=== PATIENT | female | born 2005 | race Hispanic/Latino ===

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

== ENCOUNTER 2023-12-29 01:06 | Observation (INO) | payer SELFPAY ==
[2023-12-29] VITALS (9 sets, daily range): BP systolic 90–119; BP diastolic 38–74
[~2023-12-29] VITALS: Ht 157.5 cm; Wt 102.0 kg
[~2023-12-29 01:06] MED LIST changes: +KEFLEX500 MG PO; +METFORMIN HCL500 M1 PO; +TAM75CAP PO; +ZOFRAN4 MG/TAB PO
[2023-12-29] MEDS ORDERED: MORPHINE SULFATE 4 MG/ML VIAL IV ONE (01:25)
[2023-12-29] MEDS ORDERED: ONDANSETRON HCl 4 MG/2 ML SDV IV ONE (01:25)
--- NOTE | 2023-12-29 01:25 | NUR ---
PATIENT AMB TO RM 9 WITH STEADY GAIT AT THIS TIME, PATIENT TO BR FOR URINE SPECIMEN, CHANGED INTO GOWN, TRIAGE COMPLETE, AWAITING MD BROWN AT THIS TIME, NAD NOTED, VSS.
[2023-12-29 01:52] LABS: URINE BILIRUBIN - DIPSTICK Negative (NEGATIVE); URINE BLOOD DIPSTICK Negative (NEGATIVE); URINE COLOR Yellow; URINE GLUCOSE - DIPSTICK 500 mg/dL (NEGATIVE); URINE KETONE Negative (NEGATIVE); URINE LEUK ESTERASE Negative (NEGATIVE); URINE NITRITE - DIPSTICK Negative (Negative); URINE PH 5.5 (4.5-8.0); URINE PROTEIN - DIPSTICK Negative (NEG-TRACE)
[2023-12-29 01:53] LABS: BASO% 0.3 % (0-3); HEMATOCRIT 41.7 % (37.0-47.0); HEMOGLOBIN 14.1 g/dl (12.0-16.0); IMMATURE GRANULOCYTES 0.5 % (0.0-5.0); MEAN CELL VOLUME 85.8 fL CALC (80.0-100.0); MEAN CORPUSCULAR HGB CONC 33.8 g/dL CAL (32.0-36.0); NEUT# 3.88 thou/uL (2.00-7.15); NEUT% 51.2 % (42-76); RED BLOOD COUNT 4.86 mill/uL (4.20-5.60)
[2023-12-29 02:03] LABS: ALBUMIN 4.4 g/dL (3.2-5.0); ALKALINE PHOSPHATASE 58 u/l (38-126); ANION GAP 18 (6-22 (CALC)); BILIRUBIN, TOTAL 0.4 mg/dL (0.02-1.3); BUN 15 mg/dL (7-17); BUN/CREATININE RATIO 23 (12-20 (CALC)); CARBON DIOXIDE 22 mmol/l (22-30); CHLORIDE 99 mmol/l (95-108); CREATININE 0.6 mg/dL (0.5-1.0); GFR FOR AFR.AMER. > 60 ML/MIN (>=60 (CALC)); GFR OTHER RACES > 60 ML/MIN (>=60 (CALC)); LIPASE 86 u/l (23-300); POTASSIUM 4.7 mmol/l (3.5-5.1); SGOT/AST 59 u/l (14-36); SODIUM 134 mmol/l (137-146); TOTAL PROTEIN 7.2 g/dL (6.3-8.2)
[2023-12-29] MEDS ORDERED: SODIUM CHLORIDE 0.9% 1,000 ML IV ONE ×2 (02:10→04:00)
[2023-12-29] MEDS ORDERED: INSULIN REGULAR (HUMAN) 100 UNIT/ML INJ IV ONE (02:25)
--- NOTE | 2023-12-29 02:30 | NUR ---
PATIENT MEDICATED PER ORDERS AT THIS TIME, PATIENT UPDATED ON CONTINUOUS PLAN OF CARE AT THIS TIME, AWAITING ALL FURTHER ORDERS/RESULTS. PATIENT VOICES APPRECIATION OF CARE.
--- NOTE | 2023-12-29 03:25 | NUR ---
PATIENT GLUCOSE RECHECKED NOW AT 390, PATIENT UPDATED ON CONTINUOUS PLAN OF CARE AT THIS TIME, PATIENT VOICES UNDERSTANDING, IVF RUNNING AT THIS. PATIENT FAMILY AT BEDSIDE FOR COMFORT. WILL CONTINUE TO MONITOR.
[2023-12-29] MEDS ORDERED: MAGNESIUM HYDROXIDE 30 ML UDC PO PRN (04:05)
[2023-12-29] MEDS ORDERED: ACETAMINOPHEN 325 MG/TAB PO PRN (04:05)
[2023-12-29] MEDS ORDERED: SODIUM CHLORIDE 0.9% 1,000 ML IV PRN (04:05)
--- NOTE | 2023-12-29 04:10 | NUR ---
MD QUESTIONED ON LACTIC ACID ORDER FOR REPEAT, PROVIDED, REDRAWN AT THIS TIME, GLUCOSE REASSESSED NOW AT 371, PATIENT UPDATED ON CONTINUOUS PLAN OF CARE WITH NO FURTHER QUESTIONS OR CONCERNS AT THIS TIME, FAMILY AT BEDSIDE, AWAITING ALL FURTHER ORDERS/RESULTS AT THIS TIME.
--- NOTE | 2023-12-29 05:10 | NUR ---
PATIENT UPDATED ON CONTINUOUS PLAN OF CARE WITH NO FURTHER QUESTIONS OR CONCERNS AT THIS TIME, PATIENT VERBALIZES SHE IS COMFORTABLE, VOICES NO FURTHER QUESTIONS OR CONCERNS AT THIS TIME, [facility], WILL CONTINUE TO MONITOR.
[2023-12-29] MEDS ORDERED: CLARIFY DOSE SC PRN (05:50)
--- NOTE | 2023-12-29 06:25 | NUR ---
PATIENT GLUCOSE RECHEKED NOW AT 328, PATIENT RESTING, EASILY AROUSABLE AT THIS TIME, VSS, PATIENT UPDATED ON CONTINUOUS PLAN OF CARE AT THIS TIME, VOICES UNDERSTANDING WITH NO FURTHER QUESTIONS OR CONCERNS AT THIS TIME, FAMILY AT BEDSIDE. CALL LIGHT IN REACH, WILL CONTINUE TO MONITOR.
--- NOTE | 2023-12-29 07:00 | NUR ---
REPORT RECIEVED FROM LADARIUS ROSADO RESTING IN BED
--- NOTE | 2023-12-29 08:00 | NUR ---
BREAKFAST TRAY GIVEN TO PT, PT AMBULATED TO RESTROOM WITH STEADY GAIT.
[2023-12-29 08:10] LABS: ANION GAP 12 (6-22 (CALC)); BUN 12 mg/dL (7-17); BUN/CREATININE RATIO 32 (12-20 (CALC)); CARBON DIOXIDE 21 mmol/l (22-30); CHLORIDE 106 mmol/l (95-108); CREATININE 0.4 mg/dL (0.5-1.0); GFR FOR AFR.AMER. > 60 ML/MIN (>=60 (CALC)); GFR OTHER RACES > 60 ML/MIN (>=60 (CALC)); POTASSIUM 4.1 mmol/l (3.5-5.1); SODIUM 135 mmol/l (137-146)
[2023-12-29] MEDS ORDERED: DEXTROSE 250 ML IV PRN (09:00)
--- NOTE | 2023-12-29 09:01 | NUR ---
REINFORCING IRON AND REBAR WORKERS AT BEDSIDE. PT PROVIDED EDUCATION.
[2023-12-29] MEDS ORDERED: metFORMIN HYDROCHLORIDE 500 MG/TAB PO SCH (10:00)
--- NOTE | 2023-12-29 10:50 | NUR ---
PT AMBULATED TO THE BATHROOM WITH A STEADY GAIT
[2023-12-29] MEDS ORDERED: INSULIN LISPRO 100 UNITS/ML ML SC SCH (11:00)
--- NOTE | 2023-12-29 11:23 | NUR ---
ACCU CHECK PERFORMED 371. PT GIVEN 5 UNITS OF INSULIN.
[2023-12-29] MEDS ORDERED: LANTUS SOL100 UNIT/M SC (12:43)
--- NOTE | 2023-12-29 13:57 | NUR ---
PT DISCHRAGED HOME BY . PT GIVEN INSTEUCTION TO FOLLOW UP WITH PCP IN 1 WEEK AND CINTINUE NEDS PRESCRIBED. PT HAS NO QUESTIONS AT THIS TIME. PT AMBULATED OUT OF ER WITH A STEADY GAIT.
[2023-12-29] MEDS ORDERED: ENOXAPARIN SODIUM 40 MG/0.4 ML SYR SC SCH ×2 (21:00)
== END 2023-12-29 13:50 | disposition home or self-care (01) | DRG 638 ==
LOC: ED 01:06 → ED-I 03:58
PROVIDERS: Family Medicine; Student in an Organized Health Care Education/Training Program; ADMIT Internal Medicine; ATTEND Internal Medicine
DX: E11.65 Type 2 diabetes mellitus with hyperglycemia (principal); E87.20 Acidosis, unspecified; E86.0 Dehydration; E86.1 Hypovolemia; J45.909 Unspecified asthma, uncomplicated; F81.9 Developmental disorder of scholastic skills, unspecified; Z79.84 Long term (current) use of oral hypoglycemic drugs; Z20.822 Contact with and (suspected) exposure to COVID-19

== ENCOUNTER 2025-01-13 02:01 | Observation (INO) | payer SELFPAY ==
[2025-01-13] VITALS (14 sets, daily range): BP systolic 89–142; BP diastolic 52–88
[~2025-01-13] VITALS: Ht 157.5 cm; Wt 90.0 kg
[~2025-01-13 02:01] MED LIST changes: +LANTUS SOL100 UNIT/M SC; +VOLTAREN - GENE75 MG PO
--- NOTE | 2025-01-13 02:15 | NUR ---
PT TO RM #9 VIA W/C NOTIFIED.
[2025-01-13] MEDS ORDERED: SODIUM CHLORIDE 0.9% 1,000 ML IV STA (02:30)
[2025-01-13] MEDS ORDERED: ONDANSETRON HCl 4 MG/2 ML SDV IV STA (02:30)
[2025-01-13] MEDS ORDERED: ACETAMINOPHEN 325 MG/TAB PO ONE (02:45)
[2025-01-13 03:02] LABS: BASO% 0.1 % (0-3); EOS% 0.1 % (0-8); HEMATOCRIT 44.5 % (37.0-47.0); HEMOGLOBIN 15.4 g/dl (12.0-16.0); IMMATURE GRANULOCYTES 0.2 % (0.0-5.0); LYMPH% 11.7 % (15-41); MEAN CELL VOLUME 84.8 fL CALC (80.0-100.0); MEAN CORPUSCULAR HGB 29.3 pG CALC (26.0-32.0); MEAN CORPUSCULAR HGB CONC 34.6 g/dL CAL (32.0-36.0); MONO% 4.9 % (2-13); NEUT# 12.77 thou/uL (2.00-7.15); RED BLOOD COUNT 5.25 mill/uL (4.20-5.60); RED CELL DISTRI WIDTH 11.6 % (11.5-15.5)
[2025-01-13 03:09] LABS: HCG SERUM/URINE (NEG/POS) NEGATIVE (NEGATIVE)
[2025-01-13 03:12] LABS: ALBUMIN 4.9 g/dL (3.2-5.0); CREATININE 0.5 mg/dL (0.5-1.0); POTASSIUM 3.7 mmol/l (3.5-5.1); TOTAL PROTEIN 8.2 g/dL (6.3-8.2)
[2025-01-13] MEDS ORDERED: cefTRIAXone SODIUM 2 GM in SODIUM CHLORIDE 0.9% 100 ML IV ONE (03:30)
[2025-01-13] MEDS ORDERED: AZITHROMYCIN 500 MG in SODIUM CHLORIDE 0.9% 250 ML IV ONE (03:30)
[2025-01-13] MEDS ORDERED: INSULIN REGULAR (HUMAN) 100 UNIT/ML INJ IV ONE (03:35)
--- NOTE | 2025-01-13 03:35 | NUR ---
Pt received medicine. see MAR pt tolerated meds. pt stable. good rise and fall of chest.
[2025-01-13 03:54] LABS: URINE BILIRUBIN - DIPSTICK Negative (NEGATIVE); URINE BLOOD DIPSTICK Negative (NEGATIVE); URINE GLUCOSE - DIPSTICK >=1000 mg/dL (NEGATIVE); URINE KETONE Negative (NEGATIVE); URINE LEUK ESTERASE Negative (NEGATIVE); URINE NITRITE - DIPSTICK Negative (Negative); URINE PH 5.5 (4.5-8.0); URINE PROTEIN - DIPSTICK Negative (NEG-TRACE); URINE UROBILINOGEN - DIPSTICK 0.2 E.U./dL (0.2)
[2025-01-13 03:55] LABS: URINE COLOR Yellow
[2025-01-13] MEDS ORDERED: SODIUM CHLORIDE 0.9% 1,000 ML IV ONE (04:25)
--- NOTE | 2025-01-13 04:35 | NUR ---
Pt received meds see JAN. urine sample collected before beginning antibiotics. No complaints of respiratory distress. Good rise and fall of chest. Skin color normal for ethnicity. Pt warm to the touch. No complaints of pain. Vitals WNL
--- NOTE | 2025-01-13 05:25 | NUR ---
Pt receiving second ordered antibiotic see JAN. IV site checked for patency prior to beginning of infusion. No complaints of pain or respiratory distress. PT stable vitals WNL. able to tolerate fluids. verbal order given from MD to allow patient fluids as tolerated and diabetic diet. PT updated on care of plan by MD and nurse. no questions or concerns at this time.
--- NOTE | 2025-01-13 06:18 | NUR ---
Pt resting. Pt stable vitals WNL.
--- NOTE | 2025-01-13 06:57 | NUR ---
beside report given to AM nurse . patient stable, vitals WNL
--- NOTE | 2025-01-13 07:13 | NUR ---
spoke with MS2 nurse Jensen. updated on condition of patient, treatment in ED. no questions or concerns. AM ER nurse updated that report has been called
--- NOTE | 2025-01-13 07:20 | NUR ---
RECEIVED REPORT FROM RICCO LEON.
--- NOTE | 2025-01-13 07:30 | NUR ---
RECEIVED PT FROM ER VIA W/C. PT ASSISTED TO BED AND ORIENTED TO ROOM CALL LIGHT AND PHONE. GIRL FRIEND WILL AT BEDSIDE. WILL MONITOR.
[2025-01-13] MEDS ORDERED: SODIUM CHLORIDE 0.9% 1,000 ML IV PRN (07:45)
[2025-01-13] MEDS ORDERED: ACETAMINOPHEN 325 MG/TAB PO PRN (07:45)
[2025-01-13] MEDS ORDERED: ONDANSETRON HCl 4 MG/2 ML SDV IV PRN (07:45)
[2025-01-13] MEDS ORDERED: DEXTROSE 250 ML IV PRN (07:45)
--- NOTE | 2025-01-13 08:30 | NUR ---
ASSESSMENT COMPLETED AND INTERVIEW DONE WITH BOTH PATIENT AND HER SHIPPING LEAD PERSON WILL WHO IS THE PT GIRLFRIEND. WILL HAD THE PT PASSCODE BUT WAS NOT LISTED ON PT RECORD. PT VERBALIZED APPROVAL TO SPEAK WITH HER. WILL INDICATED THAT PT MOTHER WANTS TO BE INFORMED OF ALL CARE, BUT THAT SHE WAS AT HOME. SPOKE TO DR. ABBOTT AND CHRISTI RE: PT HAVING A LEARNING DISABILITY AND ALSO THAT THE PATIENT HAS BEEN HAVING DIARRHEA AT HOME AND HAD BEEN EXPOSED TO A FAMILY THAT WAS HAVING INFECTION WITH POSSIBLE SHINGELLA PER WILL AT BEDSIDE. CHRISTI AND DR ABBOTT AWARE AND STOOL SAMPLE NEEDED AND INSTRUCTED PT AND CG.
--- NOTE | 2025-01-13 08:45 | NUR ---
DR. ABBOTT AND CHRISTI AT BEDSIDE WITH PT
[2025-01-13] MEDS ORDERED: INSULIN GLARGINE 100 UNITS/ML SC SCH (09:00)
--- NOTE | 2025-01-13 10:00 | NUR ---
MOTHER AT BEDSIDE AND VOICED MULTIPLE COMPLAINTS AFTER GOING TO HRHaris VENEGAS MOTHER ON UNIT AT BEDSIDE.
[2025-01-13] MEDS ORDERED: ALBUTEROL108 MCG/AC IN (10:22)
[2025-01-13] MEDS ORDERED: ALBUTEROL SULFATE 8 GM INH IN PRN (10:45)
--- NOTE | 2025-01-13 10:45 | NUR ---
MOTHER AND S.O. AT BEDSIDE AND PT RESTING IN BED QUIETLY. EXPLAINED ANTIBIOTICS THAT WILL BE STARTED AND PURPOSES FOR WELL SIDE EFFECTS OF CIPRO AND FLAGYL. THEY VERBALIZED UNDERSTANDING. STOOL SAMPLE SENT TO LAB.
[2025-01-13] MEDS ORDERED: INSULIN LISPRO 100 UNITS/ML ML SC SCH (11:00)
--- NOTE | 2025-01-13 19:30 | NUR ---
SHIFT SUMMARY: PT RESTED ON AND OFF IN BED WITH S.O. AT BEDSIDE. PT INDICATED FEELING BETTER AFTER ANTIBIOTICS GIVEN WELL IVF. CALL LIGHT MAINTAINED IN REACH ALL SHIFT STOOL CULTURE GIVEN TO LAB AND AWAITING RESULTS. IVF CONTINUE FOR HYDRATION. PT AFEBRILE FOR END OF SHIFT AND BEDSIDE REPORT GIVEN TO ANNY CHACKO.
--- NOTE | 2025-01-13 20:00 | NUR ---
PT RESTING IN BED NO DISTRESS NOTED ON ASSESSMENT. VS WNL ON RA LUNDS CLEAR SKIN INTACT. PT STATED HAVING A HEADACHE NURSE PROVIDED PAIN MEDICATION. IV FLUSHED WORKING PROPERLY WITH IV FLUIDS ONGOING. FAMILY/FRIEND AT BEDSIDE. CALL LIGHT WITHIN REACH. PLAN OF CARE ONGOING.
--- NOTE | 2025-01-13 20:06 | NUR ---
glucose 332
--- NOTE | 2025-01-14 00:22 | NUR ---
PT SLEEPING EASILY AROUSABLE NO DISTRESS NOTED. CALL LIGHT WITHIN REACH. PLAN OF CARE ONGOING.
[2025-01-14 04:04] VITALS: BP 97/59
--- NOTE | 2025-01-14 04:15 | NUR ---
PT AWAKE NO DISTRESS NOTED ON EXAM. CALL LIGHT WITHIN REACH. PLAN OF CARE ONGOING.
[2025-01-14 04:44] VITALS: BP 97/59
[2025-01-14 05:26] LABS: BASO% 0.3 % (0-3); EOS% 2.3 % (0-8); IMMATURE GRANULOCYTES 0.3 % (0.0-5.0); LYMPH% 25.7 % (15-41); MEAN CELL VOLUME 87.8 fL CALC (80.0-100.0); MEAN CORPUSCULAR HGB 30.2 pG CALC (26.0-32.0); MEAN CORPUSCULAR HGB CONC 34.3 g/dL CAL (32.0-36.0); MONO% 7.8 % (2-13); NEUT# 4.66 thou/uL (2.00-7.15); NEUT% 63.6 % (42-76); RED BLOOD COUNT 4.11 mill/uL (4.20-5.60); RED CELL DISTRI WIDTH 11.8 % (11.5-15.5)
[2025-01-14 05:28] LABS: HEMATOCRIT 36.1 % (37.0-47.0); HEMOGLOBIN 12.4 g/dl (12.0-16.0)
[2025-01-14] MEDS ORDERED: AZITHROMYCIN 500 MG in SODIUM CHLORIDE 0.9% 250 ML IV SCH (05:30)
[2025-01-14 05:43] LABS: ALBUMIN 3.1 g/dL (3.2-5.0); BILIRUBIN, TOTAL 0.5 mg/dL (0.02-1.3); CREATININE 0.5 mg/dL (0.5-1.0); MAGNESIUM 1.8 mg/dL (1.6-2.3); TOTAL PROTEIN 5.6 g/dL (6.3-8.2)
[2025-01-14 06:57] VITALS: BP 105/61
--- NOTE | 2025-01-14 07:11 | NUR ---
01/14/2025 @0606 PT GLUCOSE IS 243.
--- NOTE | 2025-01-14 07:15 | NUR ---
PT LAYING IN BED ON HER CELL PHONE, PT IS A&O X3, PUPILS PERRL , RESP. EVEN AND UNLABORED, LUNG SOUNDS ARE CLEAR, ABD DISTENDED AND SOFT WITH ACTIVE BOWEL SOUNDS, NORMAL S1 S2 HEART SOUNDS, 20G RAC IV WITH FLUIDS INFUSING AT PRESCRIBED RATE, STRONG RADIAL AND PEDAL PULSES, SAFETY MESURES REINFORED, CALL SUGGS WITHIN REACH
[2025-01-14] MEDS ORDERED: INSULIN GLARGINE 100 UNITS/ML SC SCH (09:00)
--- NOTE | 2025-01-14 12:00 | NUR ---
PT SITTING UP IN THE BED EATING LUNCH, PT TOLERATING WELL, PT DENIES ANY NEEDS AT THIS TIME, VISITOR AT BEDSIDE, CALL SUGGS WITHIN REACH
[2025-01-14 14:56] VITALS: BP 92/45
--- NOTE | 2025-01-14 16:00 | NUR ---
PT SITTING UP IN BED PLAYING ON HER PHONE, PT DENIES ANY NEEDS AT THIS TIME, CALL SUGGS WITHIN REACH
--- NOTE | 2025-01-14 19:11 | NUR ---
RECEIVED REPORT FROM NURSE BAUTISTA, PATIENT ON CONTACT ISOLATION, SHIGELLA IN STOOL IV INFUSING WELL NS @ 100CC/HT, NOT IN DISTRESS, FAMILY IN ROOM CALL LIGHT WITHIN REACHED.
[2025-01-14 19:19] VITALS: BP 116/82
--- NOTE | 2025-01-15 00:58 | NUR ---
MANUAL BP TAKEN 100/58, PATIENT NOT IN DISTRESS,BREATGHING UNLABORED CALL LIGHT WITHIN REACHED.
--- NOTE | 2025-01-15 01:52 | NUR ---
zora requested to changed iv site r/t itching on iv site and pain, removed iv cath intact, no signs of inflammation noted on iv site, new iv inserted 22 on rfa patent flushes well, resumed ns at 125cc/hr.
[2025-01-15 04:00] VITALS: BP 91/61
--- NOTE | 2025-01-15 04:08 | NUR ---
PATIENT RESTING IN BED, EYES CLOSED. ONGOING IV FLAGYL, NO DISCOMFORTS NOTED AT THIS TIME, CALL LIGHT WITHIN REACHED.
--- NOTE | 2025-01-15 07:00 | NUR ---
SHIFT CHANGE REPORT, PT AWAKE ALERT AND ORIENTED SITTING UP IN BED, DENIES PAIN AT THIS TIME BUT STATES SHE HAS CRAMPING PAIN DURING DEFECATION, IVF INFUSING, CALL SUGGS IN REACH AND BED LOCKED IN LOWEST POSITION.
--- NOTE | 2025-01-15 07:00 | NUR ---
SHFIT CHANGE REPPORT, PT SLEEPING IN LEFT SIDE-LYING POSITION, NO SIGN DISCOMFORT, O2 @ 2L VIA NC IN PLACE, PUREWICK CATHETER IN PLACE WITH CLEAR MAT URINE, CALL SUGGS IN REACH AND BED LOCKED IN LOWEST POSITION.
[2025-01-15 07:17] LABS: BASO% 0.6 % (0-3); EOS% 2.6 % (0-8); HEMATOCRIT 38.2 % (37.0-47.0); HEMOGLOBIN 12.9 g/dl (12.0-16.0); IMMATURE GRANULOCYTES 0.9 % (0.0-5.0); LYMPH% 45.1 % (15-41); MEAN CORPUSCULAR HGB 29.7 pG CALC (26.0-32.0); MEAN CORPUSCULAR HGB CONC 33.8 g/dL CAL (32.0-36.0); NEUT# 2.29 thou/uL (2.00-7.15); NEUT% 42.8 % (42-76); RED BLOOD COUNT 4.34 mill/uL (4.20-5.60); RED CELL DISTRI WIDTH 11.7 % (11.5-15.5)
[2025-01-15 07:31] LABS: ALBUMIN 3.4 g/dL (3.2-5.0); BILIRUBIN, TOTAL 0.3 mg/dL (0.02-1.3); CREATININE 0.5 mg/dL (0.5-1.0); MAGNESIUM 1.8 mg/dL (1.6-2.3); POTASSIUM 4.2 mmol/l (3.5-5.1); TOTAL PROTEIN 5.9 g/dL (6.3-8.2)
--- NOTE | 2025-01-15 08:30 | NUR ---
AWAKE AND ALERT, C/O BACK PAIN @ 10, CONCERN ADDRESSED, IVF INFUSING.
[2025-01-15] MEDS ORDERED: INSULIN GLARGINE 100 UNITS/ML SC SCH (10:00)
--- NOTE | 2025-01-15 12:00 | NUR ---
PT REPORTED SHE HAS HAD 7 LOOSE BM'S SINCE THIS AM STARTING AT ABOUT 0400.
--- NOTE | 2025-01-15 12:32 | NUR ---
DAUGHTER BUZZ CALLED TO INQUIRE ABOUT CONDITION AND PLANS, INFORMED OF PHYSICAL THERAPIST'S RECOMMENDATION FOR REHAB, ASKED ABOUT SURGICAL PROCEDURE AND ORTHOPEDIC CONSULT, WILL BE VISITING LATER TO DISCUSS PLANS WITH CM.
--- NOTE | 2025-01-15 12:55 | NUR ---
C/O ITCHING IT IV INSERTION SITE DURING ANTIBIOTIC INFUSING, MED INFUSIONDECREASED AND COOL COMPRESS APPLIED, PT REPORTED RELIEF. FRIEND AT BEDSIDE SINCE THIS AM.
[2025-01-15 15:23] VITALS: BP 101/56
[2025-01-15 18:30] VITALS: BP 110/64
--- NOTE | 2025-01-15 20:25 | NUR ---
PATIENT OBSERVED TO BE RESTING IN BED AWAKE WATCHING TV. FAMILY AT BEDSIDE. A&O X3. NO COMPLAINTS OF PAIN AT THIS TIME. BOWEL SOUNDS PRESENT.ABDOMEN SOFT AND DISTENDED. PATIENT STATED SHE FEELS LIKE ITS TIGHT, ON LOWER LEFT QUADRENT. IVF INFUSEING. BED AT LOWEST POSITION. CALL LIGHT WITH IN REACH.
--- NOTE | 2025-01-15 22:50 | NUR ---
PATIENT BLOOD SUGAR AT 406 AT 2100. GAVE THE 6 UNITS AND CALLED PROVIDER AT 2245 RECHECK ON BLOOD SUGAR WAS 365. PROVIDER ORDERD 4 UNITS 1X DOSE.
[2025-01-15] MEDS ORDERED: INSULIN LISPRO 100 UNITS/ML ML SC SCH (23:07)
--- NOTE | 2025-01-16 00:19 | NUR ---
PATIENT OBSERVED TO BE RESTING IN BED. PATIENT RESPONDS TO VERBAL STIMULI. NO COMPLAINTS OF PAIN. IVF INFUSING PER EMAR. BED AT LOWEST POSITION. CALL LIGHT WITH IN REACH.
--- NOTE | 2025-01-16 04:48 | NUR ---
PATIENT OBSERVED TO BE RESTING IN BED AWAKE. PATIENT CAN MAKE NEEDS KNOWN. BRANDO NEEDED AT THIS TIME. UNLABORED RESP. NO VISUAL SIGNS OF DISTRESS. BED AT LOWEST POSITION. CALL LIGHT WITH IN REACH.
[2025-01-16 05:27] LABS: BASO% 0.3 % (0-3); EOS% 2.6 % (0-8); HEMATOCRIT 39.8 % (37.0-47.0); HEMOGLOBIN 13.5 g/dl (12.0-16.0); IMMATURE GRANULOCYTES 1.1 % (0.0-5.0); LYMPH% 42.5 % (15-41); MEAN CELL VOLUME 87.3 fL CALC (80.0-100.0); MEAN CORPUSCULAR HGB 29.6 pG CALC (26.0-32.0); MEAN CORPUSCULAR HGB CONC 33.9 g/dL CAL (32.0-36.0); NEUT# 2.77 thou/uL (2.00-7.15); NEUT% 45.5 % (42-76); RED BLOOD COUNT 4.56 mill/uL (4.20-5.60); RED CELL DISTRI WIDTH 11.8 % (11.5-15.5)
[2025-01-16 05:38] LABS: ALBUMIN 3.5 g/dL (3.2-5.0); BILIRUBIN, TOTAL 0.3 mg/dL (0.02-1.3); CREATININE 0.4 mg/dL (0.5-1.0); MAGNESIUM 1.7 mg/dL (1.6-2.3); POTASSIUM 4.3 mmol/l (3.5-5.1); TOTAL PROTEIN 6.1 g/dL (6.3-8.2)
[2025-01-16 06:18] VITALS: BP 119/76
[2025-01-16 07:56] VITALS: BP 114/80
--- NOTE | 2025-01-16 08:20 | NUR ---
PT IS FOUND WALKING AROUND THE ROOM. PT IS A&O X4; INDEP IN ROOM. PT STATES NO COMPLAINTS OF PAIN. PLAN OF CARE WAS REIVEWED; NO FURTHER QUESTIONS AT THIS TIME. BED ALARM IS ON; CALL LIGHT IS WITHIN REACH.
[2025-01-16] MEDS ORDERED: METRONIDAZOLE500 MG PO (08:42)
[2025-01-16] MEDS ORDERED: CIPROFLOXACN500 MG PO (08:42)
[2025-01-16] MEDS ORDERED: LANTUS100 UNIT SC (08:42)
[2025-01-16] MEDS ORDERED: METFORMIN HCL500 M1 PO (08:42)
[2025-01-16] MEDS ORDERED: INSULIN GLARGINE 100 UNITS/ML SC SCH (09:00)
--- NOTE | 2025-01-16 12:45 | NUR ---
Discharge instructions given. Patient verbalizes understanding of same. Discharged in stable condition via Ambulatory to Home with spouse. All belongings sent with pt. IV OUT; NO TELE
== END 2025-01-16 13:00 | disposition home or self-care (01) | DRG 872 ==
LOC: ED 02:01 → ED-I 05:50 → ED 06:22 → MS2 06:23
PROVIDERS: Family Medicine; Nurse Practitioner Family; ADMIT Internal Medicine; ATTEND Internal Medicine
DX: A41.9 Sepsis, unspecified organism (principal); F84.0 Autistic disorder; A03.9 Shigellosis, unspecified; E11.65 Type 2 diabetes mellitus with hyperglycemia; F81.9 Developmental disorder of scholastic skills, unspecified; J45.909 Unspecified asthma, uncomplicated; T38.3X6A Underdosing of insulin and oral hypoglycemic [antidiabetic] drugs, initial encounter; Z91.128 Patient's intentional underdosing of medication regimen for other reason
CPT/HCPCS: G0378; J0456; J0696; J0744; J1815; J1836; J2405